=== PATIENT | female | born 1955 | race American Indian/Alaskan Native ===

== ENCOUNTER 2021-12-14 06:52 | Emergency (ER) | payer OTHER ==
[2021-12-14] MEDS ORDERED: Pantoprazole 40 MG Vial IV ONE (08:10)
[2022-01-06 11:20] LABS: ANION GAP 19.7 mEq/L (7-13); CHLORIDE,CL 105 mmol/L (98-107); SODIUM,NA 143 mmol/L (136-145)
[2022-01-06 11:21] LABS: ESTIMATED GFR 46 mL/min (>=60)
[2022-01-06 11:25] LABS: CORONAVIRUS COVID-19 NAA NEGATIVE (NEGATIVE)
== END 2021-12-14 09:38 ==
LOC: DL.ED 06:52
DX: S06.9X9A Unspecified intracranial injury with loss of consciousness of unspecified duration, initial encounter (principal); S01.01XA Laceration without foreign body of scalp, initial encounter; K92.2 Gastrointestinal hemorrhage, unspecified; R55 Syncope and collapse; Z20.822 Contact with and (suspected) exposure to COVID-19; W19.XXXA Unspecified fall, initial encounter
CPT/HCPCS: 0240U; 12001; 36415; 36430; 70450; 71045; 80053; 80307; 81001; 82140; 82150; 82272; 83605; 83690; 84484; 85025; 85379; 85610; 86850; 86900; 86901; 86920; 86922; 87040; 93005; 93010; 96361; 96374; 99283; 99285; C9113; P9016

== ENCOUNTER 2024-02-25 23:35 | Emergency (ER) | payer MEDICARE ==
[2024-02-26 00:21] LABS: BASOPHILS PERCENT AUTO 0.4 % (0.0-1.0); EOSINOPHILS PERCENT AUTO 3.4 % (1.0-3.0); HEMOGLOBIN 10.5 g/dL (12.0-16.0); LYMPHOCYTES PERCENT AUTO 17.7 % (20.5-50.1); MEAN CORPUSCULAR HEMOGLOBIN 25.7 pg (27.0-34.0); MEAN CORPUSCULAR HGB CONC 29.2 g/dL (33.0-35.0); MONOCYTES PERCENT AUTO 10.2 % (2-8); NEUTROPHILS PERCENT AUTO 68.3 % (42.2-75.2); PLATELET COUNT,PLT 408 10^3/uL (150-450); RED BLOOD CELL COUNT 4.09 10^6/uL (4.2-5.4); WHITE BLOOD CELL COUNT,WBC 7.7 10^3/uL (5.0-10.0)
[2024-02-26 00:52] LABS: ALBUMIN 1.7 g/dL (3.4-5.0); ANION GAP 12.3 mEq/L (7-13); BILIRUBIN TOTAL 0.3 mg/dL (0.2-1.0); BUN/CREATININE RATIO 7.5 (No establ ref range); CALCIUM 8.3 mg/dL (8.5-10.1); CREATININE 1.47 mg/dL (0.55-1.02); EST CRCL DRUG DOSING (CG) 33.42 mL/min; MAGNESIUM 2.2 mg/dL (1.8-2.4); POTASSIUM,K 4.3 mmol/L (3.5-5.1); PROTEIN TOTAL,TP 5.9 g/dL (6.4-8.2)
[2024-02-26 00:53] LABS: A/G RATIO 0.4
[2024-02-26] MEDS: Furosemide 40 MG/4 ML VIAL IVPUSH ONE (02:02)
[2024-02-26] MEDS: Aspirin 81 MG Tab.Chew PO ONE (02:02)
[2024-02-26] MEDS: Enoxaparin 100 MG/1 ML Syringe SUBCUT ONE (02:54)
[2024-02-26 03:40] VITALS: BP 144/89; PULSE 91
== END 2024-02-26 03:34 ==
LOC: DL.ED 23:35
DX: I13.0 Hypertensive heart and chronic kidney disease with heart failure and stage 1 through stage 4 chronic kidney disease, or unspecified chronic kidney disease (principal); I50.9 Heart failure, unspecified; N18.9 Chronic kidney disease, unspecified; R79.89 Other specified abnormal findings of blood chemistry; E11.22 Type 2 diabetes mellitus with diabetic chronic kidney disease; F17.210 Nicotine dependence, cigarettes, uncomplicated; Z79.82 Long term (current) use of aspirin; Z79.899 Other long term (current) drug therapy
CPT/HCPCS: 36415; 71046; 80053; 83735; 83880; 84484; 85025; 87428; 93005; 96372; 96374; 99285; A9270; J1650; J1940